=== PATIENT | male | born 1990 | race Caucasian/White ===

== ENCOUNTER 2021-11-11 23:35 | Emergency (ER) | payer MEDICAID, OTHER ==
[~2021-11-11] VITALS: Ht 182.9 cm; Wt 90.7 kg
[2021-11-12 01:09] VITALS: BP 163/115
[2021-11-12] MEDS ORDERED: HYDR-3972 PO (05:57)
[2021-11-12] MEDS ORDERED: HYDROCODONE/APAP 5/325MG TABLET PO ONE (06:00)
[2021-11-12] MEDS ORDERED: IBUPROFEN 400 MG TABLET ONE (06:25)
[2021-11-12] MEDS ORDERED: IBUPROFEN 400 MG TABLET PO ONE (06:30)
== END 2021-11-12 06:35 | disposition home or self-care (01) ==
LOC: ER 23:51
DX: S93.601A Unspecified sprain of right foot, initial encounter (principal); Z60.2 Problems related to living alone; X58.XXXA Exposure to other specified factors, initial encounter; Y93.89 Activity, other specified; Y92.89 Other specified places as the place of occurrence of the external cause; Y99.8 Other external cause status
CPT/HCPCS: 73630-TC

== ENCOUNTER 2021-11-12 08:48 | Emergency (ER) | payer OTHER ==
[~2021-11-12] VITALS: Ht 182.9 cm; Wt 90.7 kg
[~2021-11-12 08:48] MED LIST: HYDR-3972 PO
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
--- NOTE | 2021-11-12 09:04 | NUR ---
TO ER BED 11 FROR Addendum: 11/12/21 at 0904 by DOYLE TO ER BED 11 FOR CHYNAAL
--- NOTE | 2021-11-12 09:32 | NUR ---
URINE COLLECTED AND SENT
[2021-11-12 09:45] LABS: BASOPHILS % (AUTO) 0.5 % (0.0-2.0); EOSINOPHILS % (AUTO) 0.9 % (0.0-6.0); HEMATOCRIT 32 % (39-51); HEMOGLOBIN 11.3 g/dL (13.5-17.5); LYMPHOCYTES % (AUTO) 14.9 % (20.0-44.0); MEAN CORPUSCULAR HGB CONC 35 g/dl (31.0-36.0); MEAN CORPUSCULAR VOLUME 84 fL (80-96); MONOCYTES # (AUTO) 0.7 K/uL (0.1-1.30); MONOCYTES % (AUTO) 10.3 % (2.0-12.0); NEUTROPHILS # (AUTO) 4.8 K/uL (1.8-8.9); NEUTROPHILS % (AUTO) 73.4 % (43.0-81.0); PLATELET COUNT (AUTO) 178 K/uL (150-450); RED BLOOD CELL COUNT(AUTO) 3.86 MIL/uL (4.5-6.0); WHITE BLOOD COUNT (AUTO) 6.5 K/uL (4.3-11.0)
[2021-11-12 10:14] LABS: ALANINE AMINOTRANSFERASE 236 U/L (12-78); ALBUMIN 3.4 g/dL (3.4-5.0); ALCOHOL, BLOOD < 3 mg/dL (0-0); ALKALINE PHOSPHATASE 88 U/L (46-116); ASPARTATE AMINOTRANSFERASE 741 U/L (15-37); BILIRUBIN,DIRECT 0.3 mg/dL (0.0-0.2); BILIRUBIN,TOTAL 1.5 mg/dL (0.2-1.0); CALCIUM, SERUM 8.2 mg/dL (8.5-10.1); CARBON DIOXIDE 23 mmol/L (21-32); CHLORIDE 104 mmol/L (98-107); GLUCOSE 85 mg/dL (74-106); POTASSIUM 3.6 mmol/L (3.5-5.1); SODIUM SERUM 137 mmol/L (136-145); TOTAL PROTEIN, SERUM 6.6 g/dL (6.4-8.2); UREA NITROGEN, BLOOD 50 mg/dL (7-18)
[2021-11-12 10:19] LABS: ACETAMINOPHEN 0 ug/ml (10-30)
[2021-11-12 10:33] LABS: BILIRUBIN,URINE NEGATIVE (NEGATIVE); COLOR,URINE YELLOW (YELLOW); LEUKOCYTE ESTERASE ,URINE NEGATIVE (NEGATIVE); NITRITE, URINE NEGATIVE (NEGATIVE); PH,URINE 5.5 (5.0-8.0); PROTEIN,URINE TRACE mg/dl (NEGATIVE); UGLUCOSE NEGATIVE (NEGATIVE); UROBILINOGEN,URINE 0.2 EU/dL (0.2)
[2021-11-12 11:48] LABS: BACTERIA,URINE FEW /HPF (None Seen); SQUAMOUS EPITHELIAL CELL,UR FEW /HPF (None Seen)
--- NOTE | 2021-11-12 13:19 | NUR ---
BED ASSIGNED 315-2
--- NOTE | 2021-11-12 14:31 | NUR ---
REPORT GIVEN TO ELIZA AUGUSTE FOR YOGI
--- NOTE | 2021-11-12 15:00 | NUR ---
Patient does not wish to proceed with medical care recommended by ( ). Patient given information related to possible complications, up to and including , which could occur as a result of leaving the hospital at this time. Patient verbalizes understanding of risks involved due to leaving against medical advice. Patient has signed AMA form. Addendum: 11/12/21 at 1709 by CASEY Patient does not wish to proceed with medical care recommended by Dr. Mohr. Patient given information related to possible complications, up to and including , which could occur as a result of leaving the hospital at this time. Patient verbalizes understanding of risks involved due to leaving against medical advice. Patient has signed AMA form.
--- NOTE | 2021-11-12 15:00 | NUR ---
IV removed. Catheter intact and site benign. Pressure and 4x4 applied to site. No bleeding noted.Patient discharged to home in stable condition. Written and verbal after care instructions given. Patient verbalizes understanding of instruction.
[2021-11-12 17:10] VITALS: BP 126/67
== END 2021-11-12 17:11 | disposition left against medical advice (07) ==
LOC: ER 08:55 → TELE 14:56 → UNDOADMIN 14:56 → ER 17:11
DX: F15.129 Other stimulant abuse with intoxication, unspecified (principal); N17.9 Acute kidney failure, unspecified; D64.9 Anemia, unspecified; R74.01 Elevation of levels of liver transaminase levels; Z20.822 Contact with and (suspected) exposure to COVID-19; Z53.29 Procedure and treatment not carried out because of patient's decision for other reasons; R00.0 Tachycardia, unspecified
CPT/HCPCS: 36415; 80048; 80076; 80143; 80307; 80320; 81001; 85025; 87426; 99283; C9803; G0480